=== PATIENT | male | born 1955 | race Caucasian/White ===

== ENCOUNTER 2018-05-10 13:58 | Inpatient (IN) ==
[2018-05-10] MEDS ORDERED: NS 1,000 ML ONE (14:37)
[2018-05-10] MEDS: NS 1,000 ML IV ONE ×2 (14:45)
[2018-05-10 16:08] LABS: BASO# 0.06 X1000 (0.0-0.2); BASO% 0.3 % (0.0-0.8); EOS# 0.16 X1000 (0.0-0.7); EOS% 0.9 % (0.0-10.0); HEMATOCRIT 37.5 % (42.0-52.0); HEMOGLOBIN 11.7 g/dL (14.0-18.0); IMM GRAN# 0.25 X1000 (0.0-0.04); IMM GRAN% 1.4 % (0.0-0.5); LYMPH# 2.24 X1000 (1.2-3.4); LYMPH% 12.3 % (20.5-51.1); MCH 27.3 PG (27-31); MCHC 31.2 g/dL (33-37); MCV 87.6 FL (81-99); MONO% 7.7 % (1.7-9.3); MPV 11.4 FL (7.4-10.4); NEUT# 14.12 X1000 (1.4-6.5); NEUT% 77.4 % (42.2-75.2); PLT 284 X1000 (130-400); RBC 4.28 XMIL (4.7-6.1); RDW 15.7 % (11.5-14.5); WBC 18.23 X1000 (4.8-10.8)
--- NOTE | 2018-05-10 16:36 | EKG Report ---
Test Performed on : 05/10/2018 3:13:32 PM Test Reason : ED. NO EKG ORDER FOR MUSE Blood Pressure : / mmHG Vent. Rate : 087 BPM Atrial Rate : 087 BPM P-R Int : 140 ms QRS Dur : 108 ms QT Int : 438 ms P-R-T Axes : 018 -30 078 degrees QTc Int : 527 ms Sinus rhythm. with occasional premature ventricular complexes. and premature atrial complexes. Left axis deviation Septal infarct , age undetermined Prolonged QT Abnormal ECG When compared with ECG of 01-MAY-2018 09:59, Significant changes have occurred Unconfirmed Result
[2018-05-10 16:51] LABS: ALB/GLOB RATIO 0.6; ALBUMIN 1.9 g/dL (3.5-5.0); POTASSIUM 2.9 mmol/L (3.5-5.1); TOTAL BILIRUBIN 0.39 mg/dL (0.20-1.00); TOTAL PROTEIN 5.3 g/dL (6.3-8.3)
[2018-05-10 17:12] LABS: CREATININE 5.3 mg/dL (0.7-1.2)
[2018-05-10] MEDS ORDERED: NS 1,000 ML IV ONE (17:54)
[2018-05-10] MEDS ORDERED: VANCOMYCIN IV PER PHARMACY MISC SCH (18:00)
[2018-05-10] MEDS ORDERED: ZOFRAN IV PRN (18:00)
[2018-05-10] MEDS ORDERED: TYLENOL PO PRN (18:00)
[2018-05-10] MEDS ORDERED: VANCOMYCIN 1 GM/NS 1 GM/250 ML IVPB IV ONE (18:30)
--- NOTE | 2018-05-10 18:50 | Diag Imaging Result Doc PS360 ---
CHEST-PORTABLE - 05/10/2018 INDICATION: SOB COMPARISON: 01/23/2018 FINDINGS: Lung volumes are critically low. There is pleural thickening or effusion on the left similar to prior. No definitely new infiltrates. IMPRESSION: Critically low lung volumes. Otherwise no significant change from prior. Electronically signed by Jayce Larson 05/10/2018 6:47 PM
--- NOTE | 2018-05-10 18:57 | Diag Imaging Result Doc PS360 ---
CT HEAD W/O CONTRAST - 05/10/2018 INDICATION: acute confusion COMPARISON: 07/20/2017 FINDINGS: The ventricles and sulci are normal in size and contour. No intracranial mass or hemorrhage. The skull is intact. The sinuses mastoids and middle ears are clear. IMPRESSION: Negative exam. This exam was performed using automated exposure control, adjustment of mA or kV according to patient size, and/or use of iterative reconstruction technique Electronically signed by Jayce Larson 05/10/2018 6:55 PM
--- NOTE | 2018-05-10 19:04 | NEPHROLOGY CONSULTATION ---
DATE: 05/10/2018 REASON FOR CONSULTATION: ESRD, altered mental status, possible sepsis. REQUESTING PHYSICIAN: Consulted by Dr. Anshul Adams MD., by direct conversation. HISTORY OF PRESENT ILLNESS: Mr. Lockwood is a 63-year-old white male who is well known to me. He has diabetes, hypertension, and ischemic cardiomyopathy. He has severe peripheral vascular disease with bilateral BKAs, and he just had digital amputations of both hands last Tuesday by Dr. Alfredo. Since that time, he has had some confusion, lethargy, and increased somnolence. This alarmed the family such that they called the ambulance on yesterday, but the patient discouraged them from transferring him to the emergency room. Symptoms were ongoing, and so the EMS services were activated again today and he was transferred to the emergency room. He does not think there is a problem, though he has difficulty attending to a subject and his thoughts drift off the subject. He denies pain, nausea, shortness of breath, etc. He has taken narcotics but overall very few, 1 a day perhaps. He has eaten very poorly since he underwent his surgery, and he has continued his routine dialysis prescription without change. PAST MEDICAL HISTORY: As above. MEDICATIONS: Home medications have not been listed out yet. ALLERGIES: Rosuvastatin. SOCIAL HISTORY: He is and lives with his who is his primary caregiver. FAMILY HISTORY: Otherwise noncontributory. REVIEW OF SYSTEMS: Otherwise noncontributory. PHYSICAL EXAMINATION: Vital Signs: Blood pressure 89/68, heart rate 86, respirations 17, afebrile. General: He is in no acute distress. Skin: Warm and dry. He has a wound VAC on the left lower leg. He has Band-Aids on both hands at his surgery sites. These were not removed. HEENT: Conjunctivae are pink. Pupils are equal. Oropharynx is dry. Neck: Supple. Neck veins are flat. Trachea is midline. Heart: Regular, with a gallop and a murmur. Lungs: Equal breath sounds. No crackles. Abdomen: Distended and soft. Bowel sounds are present. No organomegaly or masses. Extremities: No edema, clubbing, or cyanosis. IMPRESSION: Altered mental status. I expect that he has volume contraction, and certainly sepsis is a concern. He did not have significant hyperglycemia, though his chemistries are pending to rule out diabetic ketoacidosis. RECOMMENDATIONS: I have directed the staff to give normal saline, and he has received 1 L. Repeat blood pressure is pending. Blood cultures and urine cultures have been obtained. Chest x- ray report is pending currently. He will be treated with empiric broad-spectrum antibiotics. From a dialysis standpoint, we will use 1.5% Dianeal but otherwise use his routine home prescription. His anemia is in target. cc: Layton Marie MD
--- NOTE | 2018-05-10 19:59 | HISTORY AND PHYSICAL ---
CHIEF COMPLAINT: Mental status changes, subjective fever. HISTORY OF PRESENT ILLNESS: 63-year-old male, with a past medical history of end-stage renal disease, on peritoneal dialysis, peptic ulcer disease, diabetes, hypertension, severe peripheral vascular disease with bilateral lower extremity BKA, who presented to emergency department because the family and the caregiver found this patient lethargic. He had a surgery done recently on 05/05/2018. He had a gangrene of right 5th finger and also gangrene of the left 4th finger, and both fingers were amputated. Then, he went home apparently the next day, which was this last Tuesday. He started having some confusion, and he was not eating or drinking too much as well. As per the family, he was getting worse on a daily basis, but the patient refused to come to the hospital. Today, this patient was lethargic and had a low grade fever, so they decided to come to the emergency department. He received 1 L of fluid, normal saline. On my physical exam, this patient is dehydrated, so I will order one more liter. He seems to be more awake. He is oriented x2; he is not oriented to time. He is able to recognize family members at the bedside. He is complaining of severe pain at the level of the hands, especially the fingers that were removed. As per the caregiver, probably this patient has a finger infection. Also, I notice a little bit of ischemic changes at the tips of the fingers on the right hand, especially the 2nd, 3rd, and 4th fingers. In the emergency department, he was found to have a WBC of 18.2, elevated BUN and creatinine, and low potassium. He was also hypotensive with a blood pressure around 89/68. I do not have any documentation of elevated heart rate. This patient will be admitted to the medical floor with telemetry. Like I said, this patient is awake, he is oriented x2, able to recognize family members at the bedside, and following commands. Surgery Department will be consulted to evaluate his hands. Like I said, it looks like he has some ischemic changes at the tips of the fingers on the right side. I will give him a bolus of fluid. Nephrology department will be consulted. I discussed with him and the family his resuscitation status, and he wants to be Full Code. He denies nausea, vomiting, no diarrhea, no constipation, no chest pain, mild shortness of breath, and no abdominal pain. REVIEW OF SYSTEMS: All the 14 points of review of systems were checked. All of them were negative except as per HPI. PAST MEDICAL HISTORY: 1. End-stage renal disease, on peritoneal dialysis. 2. Peptic ulcer disease. 3. Diabetes. 4. Hypertension. 5. Severe peripheral vascular disease with bilateral lower extremity DKA. PAST SURGICAL HISTORY: 1. Bilateral BKA. At this moment, he has a wound VAC on the left lower extremity. 2. Right-sided hip surgery. 3. Atherectomy in November 2016. 4. Peripheral dialysis catheter placement. SOCIAL HISTORY: No alcohol. He quit smoking 20 years ago. FAMILY HISTORY: Esophageal cancer in father, and mother with coronary artery disease. PHYSICAL EXAMINATION: VITAL SIGNS: Temperature 97.9 degrees, pulse 87, respiratory rate 17, blood pressure 115/60, oxygen saturation 99 on nasal cannula 2 L. HEENT: Head normocephalic. No trauma. PERRLA. NECK: Supple. No JVD. Central trachea. CHEST: Decreased breath sounds at the bases with some rales and some crepitus. ABDOMEN: Soft. Peritoneal dialysis catheter in place with no signs of infection. EXTREMITIES: Bilateral lower extremity BKAs. There is a wound VAC on his left lower extremity. Hands: He has his right 5th finger amputated as well as his left 4th finger amputated. CARDIOVASCULAR: Regular rhythm and rate. Systolic murmur. NEUROLOGICAL: The patient is alert. He is oriented x2. He is following commands. He is able to recognize family members at the bedside. SKIN: Mucous membranes are dry, dehydrated. LABORATORY: WBC 18.2, hemoglobin 11.7, hematocrit 37.5, platelets 294,000. Sodium 137, potassium 2.9, chloride 94, bicarbonate 24, BUN 33, creatinine 5.3, glucose 142, calcium 8, albumin 1.9. ASSESSMENT AND PLAN: 1. Encephalopathy. As per the family, he started having some confusion since last Tuesday, and today he was completely lethargic. He seems to be really dehydrated. He received 1 L of normal saline in the emergency department, and I will provide another liter. At this moment, he is awake, he is oriented x2, he is following commands, and able to recognize family members at the bedside. As per the family members, he had an episode of low grade fever at home, so I will ask for a chest x-ray, and I will put him on antibiotics since his white blood cell count is really high at 18.2. 2. Elevated white blood cells. Like I mentioned before, the caregiver stated that probably he has an infection at the level of the fingers that were amputated. They are covered right now and he is in pain, so I will let Wound Care and Surgery Department to evaluate this patient. 3. Type 2 diabetes. Will do for now pattern of blood sugar and sliding scale insulin. Will monitor the blood sugar closely. I will ask for a hemoglobin A1c. 4. Hypertension. Actually, this patient came in with low blood pressure. I will hold any kind of blood pressure medication at this moment. 5. End-stage renal disease, on peritoneal dialysis. Dr. Marie has been consulted and he is aware of the patient. 6. Hypokalemia. We will manage accordingly depending on his peritoneal dialysis. We need to avoid over correction. 7. Hypothyroidism. Continue with levothyroxine. 8. Recent amputation of the right 5th finger and left 4th finger. I have requested an evaluation by Surgery Department. He is complaining of a lot of pain on his right hand. He has some ischemic changes at the tips of the fingers. As per the family and caregiver, those fingers may be infected, so I will let Surgery Department and Wound Care to evaluate this. cc: Gaetano Merino MD
[2018-05-10] MEDS ORDERED: LYRICA PO SCH (21:00)
[2018-05-10] MEDS: HEPARIN SUBQ SCH (22:42)
[2018-05-10] MEDS: ZOSYN 2.25 GM in NS 50 ML IV SCH (22:43)
[2018-05-10] MEDS: NORCO-10 PO PRN (22:49)
[2018-05-10] MEDS: HUMULIN R SUBQ SCH (22:51)
[2018-05-11] MEDS: ZOSYN 2.25 GM in NS 50 ML IV SCH ×2 (05:50→18:00)
[2018-05-11] MEDS: HUMULIN R SUBQ SCH ×4 (06:01→23:09)
[2018-05-11 06:21] LABS: BASO# 0.05 X1000 (0.0-0.2); BASO% 0.2 % (0.0-0.8); EOS# 0.12 X1000 (0.0-0.7); EOS% 0.6 % (0.0-10.0); HEMATOCRIT 36.8 % (42.0-52.0); HEMOGLOBIN 11.3 g/dL (14.0-18.0); IMM GRAN# 0.37 X1000 (0.0-0.04); IMM GRAN% 1.8 % (0.0-0.5); LYMPH# 2.33 X1000 (1.2-3.4); LYMPH% 11.6 % (20.5-51.1); MCH 27.1 PG (27-31); MCHC 30.7 g/dL (33-37); MCV 88.2 FL (81-99); MONO# 1.29 X1000 (0.11-0.59); MONO% 6.4 % (1.7-9.3); MPV 11.2 FL (7.4-10.4); NEUT# 15.96 X1000 (1.4-6.5); NEUT% 79.4 % (42.2-75.2); PLT 305 X1000 (130-400); RBC 4.17 XMIL (4.7-6.1); RDW 15.9 % (11.5-14.5); WBC 20.12 X1000 (4.8-10.8)
[2018-05-11 06:37] LABS: POTASSIUM 2.9 mmol/L (3.5-5.1)
[2018-05-11 06:39] LABS: HEMOGLOBIN A1C 6.4 % (4.8-6.0)
[2018-05-11 06:54] LABS: ALB/GLOB RATIO 1.1; ALBUMIN 2.3 g/dL (3.5-5.0); CALCIUM 7.3 mg/dL (8.8-10.2); TOTAL BILIRUBIN 0.48 mg/dL (0.20-1.00); TOTAL PROTEIN 4.2 g/dL (6.3-8.3)
[2018-05-11 06:55] LABS: MAGNESIUM 1.3 mg/dL (1.5-2.7)
[2018-05-11 07:04] LABS: LYMPHS 8 % (21-51); MONO 6 % (1-9); SEGS 86 % (42-75)
[2018-05-11] MEDS ORDERED: MAGNESIUM SULFATE 2 GM/S.W.I. 2 GM/50 ML IVPB IV ONE (08:44)
[2018-05-11] MEDS ORDERED: MORPHINE IV PRN (08:59)
[2018-05-11] MEDS ORDERED: NS 500 ML IV SCH (09:00)
[2018-05-11] MEDS ORDERED: KLOR-CON PO ONE (09:01)
[2018-05-11] MEDS ORDERED: VANCOMYCIN IV PER PHARMACY MISC SCH (09:30)
[2018-05-11] MEDS: HEPARIN SUBQ SCH ×2 (10:02→23:09)
[2018-05-11] MEDS: SYNTHROID PO SCH (10:03)
--- NOTE | 2018-05-11 10:08 | PROGRESS NOTE ---
DATE: 05/11/2018 SUBJECTIVE: This patient seems to be more alert and awake compared with yesterday. His answers are slow, but appropriate. He is able to say his name, date of . He is oriented to time and place. He is complaining of back pain, so I will put him on IV morphine. Nephrology Department on board, and I have requested an evaluation by Surgery Department. For me, this patient still looks a little bit dehydrated. I will give him a dose of normal saline, 500 mL slow rate. His blood pressure has been around high 90s and 110s. At this moment, he is about to get his breakfast. Will continue with the same management. Leukocyte count increased from 18 to 20, but no fever has been documented. Chest x-ray did not show any abnormality. He has been placed already on antibiotics, Zosyn and vancomycin, which the dose will be calculated by pharmacy. Also, I will request evaluation by Infectious Disease Department. OBJECTIVE: Vital Signs: Temperature 97.9 degrees, pulse 82, respiratory rate 18, blood pressure 110/44, oxygen saturation 91 on 2 L of nasal cannula, 84 without oxygen. HEENT: Head normocephalic. No trauma. PERRLA. Neck: Supple. No JVD. No masses. Central trachea. Chest: Decreased breath sounds at the bases with some crepitus and rhonchi at the bases. Abdomen: Soft. Peritoneal dialysis catheter in place with no signs of infection. Extremities: Bilateral lower extremity BKAs. There is a wound VAC on his left lower extremity. Hands: He has his right fifth finger amputated, as well as the left fourth finger amputated. He has some ischemic changes at the tip of the fingers of the right hand. Cardiovascular: RRR. Systolic murmur. Neurological: This patient is alert today. He is oriented x3. He is following commands. He is answering my questions, and his answers are slow, but appropriate. Skin: Mucous membranes are dry still. He looks dehydrated. LABORATORY DATA: WBC 20.1, hemoglobin 11.3, hematocrit 36.8, platelets 305,000. Sodium 139, potassium 2.9, chloride 98, bicarbonate 23, BUN 31, creatinine 5, glucose 179, calcium 7.3. Albumin 2.3. ASSESSMENT AND PLAN: 1. Encephalopathy. He seems to be a little bit better compared with yesterday. He is answering my questions, but his answers are slow. He is awake. He is oriented x3. Will continue with the same management for now. He had a surgery done last Tuesday, and he started having confusion the next day. 2. Elevated white blood cells. Apparently, as the caregiver, this patient probably has an infection at the level of the fingers that where amputated before. They are covered right now, and he is in pain, so I will let Wound Care and Surgery Department evaluate this patient. Also, this patient has a wound VAC. Infectious Disease Department will evaluate this patient. He has some crepitus at the bases with possible pneumonia. He has been hypoxemic without oxygen. I am not sure he has a consolidation at the level of the left lower lobe or if it is just part of the cardiomegaly. 3. Type 2 diabetes. Continue with pattern of blood sugar and sliding scale insulin. Hemoglobin A1c 6.4. Blood sugar in target. 4. Dehydration. He seems to be a little bit dehydrated today still. His mucosa is dry, and he is thirsty, more than normal, so I will give him just an extra dose of 500 mL slowly. 5. Hypertension. Actually, this patient's blood pressure has been low. I will hold any blood pressure medication. 6. End-stage renal disease, on peritoneal dialysis. Nephrology Department following this patient. 7. Hypokalemia. I will give him a dose of potassium by mouth. I will continue to monitor. 8. Hypothyroidism. Continue with levothyroxine. 9. Recent amputation of the right fifth finger and left fourth finger. I have requested an evaluation by Surgery Department. He is complaining of a lot of pain on his hands. He has some ischemic changes at the tip of the fingers on the right side. Apparently as per the family and caregiver, those fingers might be infected. I will let Surgery Department and Wound Care evaluate this patient. I will continue with antibiotics, and Infectious Disease Department will be consulted. 10. Hypomagnesemia. I will replace the magnesium. cc: Gaetano Merino MD
[2018-05-11 11:22] LABS: BODY FLUID SOURCE PERITONEAL FLUID
[2018-05-11 11:23] LABS: WBC BF 5 /cumm
--- NOTE | 2018-05-11 13:09 | GENERAL SURGERY CONSULTATION ---
DATE: 05/11/2018 HISTORY OF PRESENT ILLNESS: Mr. Lockwood is a 63-year-old unfortunate gentleman with diabetes and end-stage renal disease, who has severe peripheral vascular disease. He recently underwent amputation of gangrenous fingers, the right fifth finger and the left fourth finger. He has developed confusion, as well as what appears to be some wet infection of his right fifth finger amputation site. He has been admitted for that. PHYSICAL EXAMINATION: Vital Signs: He is afebrile. Heart rate is 93. Blood pressure 94/25. Extremities: He has some gangrenous tissue on the right fifth finger. The left fourth finger has some stitches, but it does not appear to have any wet gangrene. He has a below-knee amputation site on the left, an above-knee amputation site on the right. He has a wound VAC on the left leg stump. Heart: He is regular rate and rhythm. Abdomen: Soft. PLAN: The plan will be to debride his right fifth finger in the operating room. I have discussed this with he and his family; they understand and agree. cc: Sandip Alfredo MD
--- NOTE | 2018-05-11 13:26 | Diag Imaging Result Doc PS360 ---
EXAM: CHEST-1 VIEW HISTORY: pneumonia TECHNIQUE: Portable chest single view COMPARISON: 05/10/2018 FINDINGS: Poor inspiratory effort. Small moderate-sized left pleural effusion. There is atelectasis or infiltrates in the left lung similar to the prior exam. The heart is mildly prominent. There is mild pulmonary edema. IMPRESSION: No interval improvement. Electronically signed by Wilmer Vasquez 05/11/2018 1:23 PM
--- NOTE | 2018-05-11 14:08 | INFECTIOUS DISEASE CONSULT REP ---
DATE: 05/11/2018 CONCLUSION: The patient has gangrenous cellulitis involving the left fourth finger and the right fifth finger. He also has a VAC on his left leg and I have not seen the wound on that leg. Finally, a chest-ray done today shows a left lower lobe infiltrate. RECOMMENDATIONS: I agree with the current antibiotic treatment with vancomycin and Zosyn pending culture results. DISCUSSION: The patient was unable to provide a history. The information I got was from the computer. There were no family members present either. REVIEW OF SYSTEMS: This was unable to be done. PAST MEDICAL HISTORY: 1. End-stage renal disease. The patient is on peritoneal dialysis. 2. Peptic ulcer disease. 3. Diabetes. 4. Hypertension. 5. Severe peripheral vascular disease. 6. Hypothyroidism. PAST SURGICAL HISTORY: 1. Bilateral [id number] amputations. 2. Right-sided hip surgery. 3. Atherectomy in November 2016. 4. Peripheral dialysis catheter placed. SOCIAL HISTORY: The patient stopped smoking 20 years ago. He does not drink alcoholic beverages. FAMILY HISTORY: Positive for esophageal cancer and coronary artery disease. HOME MEDICATIONS: 1. Amlodipine. 2. Vitamins and minerals. 3. Hydrocodone. 4. Lantus. 5. Synthroid. 6. Lopressor. 7. Protonix. 8. MiraLAX. 9. Lyrica. PHYSICAL EXAMINATION: Vital Signs: Temperature is 98 degrees, pulse 93, respirations 18, blood pressure 94/25. Patient is 4 feet 10 inches tall, weighs 200 pounds. General: This is an ill appearing middle-aged male. He is in no acute distress. Head/eyes/ears/nose/throat: He can hear my spoken words and see near objects. He does not have any white patches on his tongue . Neck: No pain with movement. Lungs: Clear to auscultation. Cardiovascular: Heart rate is regular. Abdomen: Soft, slightly protuberant and not tender. A peritoneal dialysis catheter is in place. The site is not erythematous or draining. Neurologic: The patient was lethargic today. He does not have a tremor. Integument: No rash noted. Extremities-left 4th finger and right 5th finger have gangrenous cellulitis. COMORBIDITIES: 1. End-stage renal disease. Patient is on peritoneal dialysis. 2. Peptic ulcer disease. 3. Diabetes. 4. Severe peripheral vascular disease. Thank you for the consult. Alonso#: [id number] cc: Gael Marshall MD MTDD
--- NOTE | 2018-05-11 14:57 | NEPHROLOGY PROGRESS NOTE ---
DATE: 05/11/2018 SUBJECTIVE: Mr. Lockwood is resting quietly in bed. Head of the bed is slightly elevated. He is very lethargic today. He is difficult to awake. Once he is awake, he drifts immediately back off to sleep again. OBJECTIVE: His most recent vital signs: His last temperature is 98.1 degrees, blood pressure 89/47, heart rate 81, respirations are 18. The patient is currently on 2 L nasal cannula. The patient's last recorded saturation is 91%. He has had 350 mL in. He has had 0 recorded out, though he has not been taken off his peritoneal dialysis during the night. LABORATORY DATA: Sodium is 139, potassium is 2.9, chloride 98, CO2 is 23, BUN 31, creatinine 5, glucose of 179, his calcium is 7.3, magnesium 1.3, albumin is 2.3. White count 20.12, hemoglobin 11.3, hematocrit 36.8, with a platelet count of 305,000. PHYSICAL EXAMINATION: General: This is a 63-year-old white male. He is currently resting quietly in bed. He appears chronically ill. No acute distress. Skin: Warm and dry. HEENT: Normocephalic, atraumatic. Conjunctivae pale. He has AURELIA. Mucous membranes are dry. Neck: Supple. Trachea midline. No JVD evident. Cardiovascular: He is regular rate and rhythm. He has an S4 present. Lungs: Clear to auscultation bilaterally. Equal excursion on O2. Abdomen: Soft, nondistended. He has peritoneal dialysis attachment to his cycler infusing at this time. Treatment is not yet completed. Genitourinary: Not inspected. Minimal void with dialysis assist. Extremities: Trace edema. No clubbing or cyanosis. Neurological: As above. ASSESSMENT AND PLAN: 1. Chronic kidney disease stage 5D. The patient has tolerated his dialysis treatment on the cycler well during the night. He is to be taken off early this morning. 2. Electrolytes and acid-base balance. The patient has hypokalemia. He has received potassium supplement early this morning, prescribed by his primary care. 3. Anemia. This remains low, but stable. This is acceptable. 4. Sepsis with altered mental status. The patient is currently on Zosyn and vancomycin. These are renally dosed. Blood cultures are currently pending. I would like to thank you for allowing us to follow with this patient. Dictated by WU Fields for Layton Marie MD Face to face encounter, data reviewed, discussed with Marely Reyes on 05/12/18. I agree with the above assessment and plan of care. cc: WU Fields MD [facility]
[2018-05-12] MEDS: ZOSYN 2.25 GM in NS 50 ML IV SCH (05:34)
[2018-05-12 06:44] LABS: BASO# 0.06 X1000 (0.0-0.2); BASO% 0.3 % (0.0-0.8); EOS% 0.5 % (0.0-10.0); HEMATOCRIT 37.6 % (42.0-52.0); HEMOGLOBIN 11.5 g/dL (14.0-18.0); IMM GRAN# 0.49 X1000 (0.0-0.04); IMM GRAN% 2.6 % (0.0-0.5); LYMPH# 1.78 X1000 (1.2-3.4); LYMPH% 9.3 % (20.5-51.1); MCH 27.3 PG (27-31); MCHC 30.6 g/dL (33-37); MCV 89.3 FL (81-99); MONO# 1.19 X1000 (0.11-0.59); MONO% 6.2 % (1.7-9.3); MPV 11.4 FL (7.4-10.4); NEUT# 15.56 X1000 (1.4-6.5); NEUT% 81.1 % (42.2-75.2); PLT 309 X1000 (130-400); RBC 4.21 XMIL (4.7-6.1); RDW 16.1 % (11.5-14.5); WBC 19.18 X1000 (4.8-10.8)
[2018-05-12] MEDS ORDERED: NS 500 ML IV ONE (06:51)
[2018-05-12 07:22] LABS: ALB/GLOB RATIO 0.6; ALBUMIN 2.1 g/dL (3.5-5.0); CALCIUM 7.9 mg/dL (8.8-10.2); TOTAL BILIRUBIN 0.51 mg/dL (0.20-1.00); TOTAL PROTEIN 5.6 g/dL (6.3-8.3)
[2018-05-12 07:24] LABS: LYMPHS 10 % (21-51); MONO 7 % (1-9); SEGS 83 % (42-75)
[2018-05-12 07:30] LABS: CREATININE 5.2 mg/dL (0.7-1.2)
[2018-05-12 08:04] VITALS: BP 106/48
[2018-05-12] MEDS: SYNTHROID PO SCH (10:37)
[2018-05-12] MEDS: HEPARIN SUBQ SCH (10:37)
[2018-05-12] MEDS: HUMULIN R SUBQ SCH ×3 (11:33→17:11)
[2018-05-12] MEDS ORDERED: LEVAQUIN PO ONE (15:36)
[2018-05-12] MEDS: NORCO-10 PO PRN (15:49)
--- NOTE | 2018-05-12 17:53 | NEPHROLOGY PROGRESS NOTE ---
DATE: 05/12/2018 SUBJECTIVE: He is still somnolent today, but he is able to arouse and answer questions appropriately as below. OBJECTIVE: Vital Signs: Blood pressure 106/48, heart rate 89, afebrile. General: Chronically ill, no acute distress. Skin: diaphoretic. Oropharynx is dry. Neck: Neck veins are not visible. Heart: Regular, with systolic murmur. Mildly tachycardic. Abdomen: Soft, nontender. Bowel sounds present. Extremities: No edema, clubbing or cyanosis. His surgery amputation sites are discolored and black, extending down to the MCP joints. IMPRESSION: I had a long talk with the patient's as well as with the patient. He has expressed to her that he is not interested in more surgery. He has also expressed his desire "for a new body." She feels that he is tired of intervention. I went back and spoke with the patient. Though he was somewhat somnolent, he did arouse, fix his eyes on me and answer my questions clearly when I asked him about his treatment and his desire for ongoing treatment. He stated clearly that he does not feel he is improving and when I offered withdrawal of dialysis he said "I am ready." I discussed this again with his who is in agreement and she is his power of staff attorney. We will allow him to go home with hospice and we will discontinue dialysis. cc: Layton Marie MD MTDD
--- NOTE | 2018-05-12 18:50 | DISCHARGE SUMMARY ---
ADMISSION DATE: 05/10/2018 DISCHARGE DATE: DISCHARGE DIAGNOSES: 1. Encephalopathy. 2. Elevated white blood cells with an infected right fifth finger, positive culture that showed gram-negative rods. 3. Type 2 diabetes. 4. Dehydration. 5. Severe peripheral vascular disease with previous multiple amputations. 6. End-stage renal disease on peritoneal dialysis. 7. Hypokalemia. 8. Hypothyroidism. 9. Recent amputation of the right fifth finger, which is infected and left fourth finger, previous below knee amputation bilaterally. 10. Hypomagnesemia. HOSPITAL COURSE: A 63-year-old male with a past medical history of end-stage renal disease, on peritoneal dialysis, peptic ulcer disease, diabetes, hypertension, severe peripheral vascular disease with bilateral lower extremity BKA, presented to the emergency department because the family and the caregiver found this patient to be more lethargic. He was admitted on 05/10/2018. He had surgery done recently on 05/05/2018. He had a gangrene right fifth finger and also gangrene of the left fourth finger, and both fingers were amputated. Then the patient went home and apparently the next day, which was this last Tuesday, he started having some confusion. He was not eating or drinking too much as well. As per the family, he was getting worse on a daily basis, but the patient refused to come to the hospital. So the day of admission, he was more lethargic and he had some low-grade fever at home, so they decided to come to the emergency department. He received 1 L of fluid, normal saline. On my physical exam, this patient was still dehydrated, so we continued with more IV fluids. Apparently at the moment of my physical exam, he was more awake. He was oriented x2. He was not oriented to time. He was able to recognize family members at the bedside. He was complaining of severe pain mostly at the level of the hands and back, especially his fingers that were removed. As per the caregiver, probably the patient had a finger infection which actually we found that this patient's right fifth finger that was amputated was also infected with gram-negative rods. His white blood cells were elevated at 18.2, and he was hypotensive. Surgery department as well as Nephrology Department were consulted. Infectious Disease Department was involved as well. He was placed back on his peritoneal dialysis and Surgery Department evaluated this patient, and they decided to go ahead and try to do a right fifth finger debridement in the operating room. Dr. Marshall from Infectious Disease department evaluated this patient and continued with antibiotics. Today, after a discussion with this patient discussing his current condition with Nephrology department, he decided to go ahead and ask for hospice care, which we did. We will continue with antibiotics and keeping this patient comfortable. The treatment will be provided by hospice. I talked to the about this decision and she agree with that. We will honor his wishes. OBJECTIVE: Vital Signs: Temperature 98.6 degrees, pulse 89, respiratory rate 19, blood pressure 106/48, oxygen saturation 96 on room air. HEENT: Head normocephalic. No trauma. PERRLA. Neck: Supple. No JVD. No masses. Central trachea. Chest: Decreased breath sounds at the bases with some crepitus and rhonchi at the bases as well. Abdomen: Soft. Peritoneal dialysis catheter in place with no signs of infection. Extremities: Bilateral lower extremity BKA. There is a wound VAC on his left lower extremity. Hands: He has a right fifth finger amputated as well as his left fourth finger amputated. The right fifth finger showed some signs of infection. He also has some ischemic changes at the tip of the finger on the right hand, mostly the second, third, and fourth fingers. Cardiovascular: Regular rhythm and rate. Systolic murmur. Neurological: This patient is sleepy, but arousable. He was oriented x3. He was answering my questions. LABORATORY: WBC 19.1, hemoglobin 11.5, hematocrit 89.3, platelets 309,000. Sodium 139, potassium 3, chloride 96, bicarbonate 24, BUN 28, creatinine 5.2, glucose 203, calcium 7.9, albumin 2.1. DISCHARGE MEDICATIONS: We will continue with some of his home medications and also we will provide some antibiotics. 1. Levofloxacin 250 mg p.o. daily. 2. Levothyroxine 100 mcg p.o. daily. 3. [place] 10 one tablet p.o. q.6 hours as needed. 4. Acetaminophen 650 mg p.o. q.6 hours as needed. The rest of the treatment will be provided by hospice care. cc: Gaetano Merino MD
[2018-05-12] MEDS ORDERED: VANCOMYCIN 1 GM/NS 1 GM/250 ML IVPB IV SCH (22:00)
== END 2018-05-12 18:47 | disposition hospice, home (50) | DRG 564 ==
LOC: SUPCPDRO → ED 13:58 → 3N 18:23
PROVIDERS: ATTEND Internal Medicine
CPT/HCPCS: 70450; 71010; 71045; 80053; 80202; 82948; 83036; 83605; 83735; 85025; 87040; 87070; 87077; 87186; 87205; 89050; 93005; 99285; A9270; J1644; J2543; J3370; J3475; J7030; XXXXX